=== PATIENT | female | born 1980 | race Caucasian/White ===

== ENCOUNTER 2016-12-01 15:37 | Emergency (ER) | payer MEDICAID, MEDICARE ==
[~2016-12-01] VITALS: Ht 152.4 cm; Wt 49.9 kg
[2016-12-01 15:49] VITALS: BP 97/67
[2016-12-01] MEDS ORDERED: SODIUM CHLORIDE 0.9% 1,000 ML IV ONE (16:15)
[2016-12-01 16:36] LABS: Basophils # (auto) 0 uL; Basophils % (auto) 0.5 % (0.0-2.0); CONDITION Y; Eosinophils # (auto) 0.2 uL; Hematocrit 41.3 % (36.0-46.0); Lymphocytes # (auto) 2.9 uL; Lymphocytes % (auto) 34.8 % (10.0-50.0); Mean Corpuscular Hemoglobin 30.1 pg (28.0-32.0); Mean Corpuscular Volume 88.6 fL (80.0-100.0); Mean Platelet Volume 7.9 fL (7.4-10.4); Monocytes # (auto) 0.7 uL; Monocytes % (auto) 8.3 % (0.0-12.0); Neutrophils # (auto) 4.5 uL; Neutrophils % (auto) 54.4 % (37.0-80.0); Platelet Count (auto) 284 10^3/uL (140-450); Red Cell Distribution Width 13.8 % (11.6-16.0); White Blood Cell 8.3 10^3/uL (4.4-10.8)
[2016-12-01 18:38] LABS: Albumin 4.5 g/dL (3.4-5.0); Calcium 9.2 mg/dL (8.5-10.1)
[2016-12-01 19:04] LABS: BUN/Creatinine Ratio 13.5; Total Protein 7.5 g/dL (6.4-8.2)
== END 2016-12-01 19:05 | disposition home or self-care (01) ==
LOC: EDBD 15:37 → ER 15:39
DX: R41.82 Altered mental status, unspecified (principal); F32.9 Major depressive disorder, single episode, unspecified; F41.9 Anxiety disorder, unspecified; F17.210 Nicotine dependence, cigarettes, uncomplicated; Z88.8 Allergy status to other drugs, medicaments and biological substances
CPT/HCPCS: 36415; 80053; 80320; 82140; 82962; 84702; 85025; 93005

== ENCOUNTER 2017-02-15 11:09 | Emergency (ER) | payer MEDICARE, MEDICAID ==
[~2017-02-15] VITALS: Ht 152.4 cm; Wt 49.0 kg
[2017-02-15 19:20] VITALS: BP 110/71
[2017-02-15] MEDS ORDERED: cefTRIAXone SOD 1,000 MG VL ONE (20:29)
[2017-02-15] MEDS ORDERED: FLUCONAZOLE 100 MG TAB PO ONE (20:30)
[2017-02-15] MEDS ORDERED: LIDOCAINE 1% HCL (LOCAL ANESTH.) INJ 20ML MDV ONE (20:30)
[2017-02-15] MEDS ORDERED: cefTRIAXone W LIDOCAINE 500 MG IM IM ONE (20:30)
== END 2017-02-15 21:05 | disposition home or self-care (01) ==
LOC: ER 11:09
DX: N76.0 Acute vaginitis (principal); N72 Inflammatory disease of cervix uteri; L40.9 Psoriasis, unspecified; R56.9 Unspecified convulsions; L98.499 Non-pressure chronic ulcer of skin of other sites with unspecified severity; F17.210 Nicotine dependence, cigarettes, uncomplicated; Z88.8 Allergy status to other drugs, medicaments and biological substances; Z11.3 Encounter for screening for infections with a predominantly sexual mode of transmission; Z76.0 Encounter for issue of repeat prescription
CPT/HCPCS: 87070; 87205; 87491; 87591; 96372; 99284; J0696; J2001

== ENCOUNTER 2018-05-03 21:46 | Emergency (ER) | payer OTHER, MEDICAID ==
[~2018-05-03] VITALS: Ht 167.6 cm; Wt 68.0 kg
[2018-05-03 21:53] VITALS: BP 134/87
== END 2018-05-04 01:25 | disposition home or self-care (01) ==
LOC: ER 21:46
DX: Z76.0 Encounter for issue of repeat prescription (principal); R51 Headache

== ENCOUNTER 2018-10-11 10:55 | Emergency (ER) | payer OTHER, MEDICAID ==
[~2018-10-11] VITALS: Ht 167.6 cm; Wt 65.8 kg
[2018-10-11 11:28] VITALS: BP 124/86
== END 2018-10-11 12:04 | disposition home or self-care (01) ==
LOC: ER 11:03
DX: G43.909 Migraine, unspecified, not intractable, without status migrainosus (principal); Z88.6 Allergy status to analgesic agent; Z88.8 Allergy status to other drugs, medicaments and biological substances; Z76.0 Encounter for issue of repeat prescription

== ENCOUNTER 2018-10-15 10:48 | Emergency (ER) | payer OTHER, MEDICAID ==
[~2018-10-15] VITALS: Ht 167.6 cm; Wt 65.8 kg
[2018-10-15 10:52] VITALS: BP 106/77
== END 2018-10-15 11:57 | disposition left against medical advice (07) ==
LOC: ER 10:53
DX: Z76.0 Encounter for issue of repeat prescription (principal); Z53.21 Procedure and treatment not carried out due to patient leaving prior to being seen by health care provider

== ENCOUNTER 2020-07-09 17:46 | Emergency (ER) | payer OTHER, MEDICAID ==
[~2020-07-09] VITALS: Ht 167.6 cm; Wt 68.5 kg
[2020-07-09 21:05] VITALS: BP 147/90
== END 2020-07-09 21:22 | disposition home or self-care (01) ==
LOC: ER 17:46
DX: S02.609D Fracture of mandible, unspecified, subsequent encounter for fracture with routine healing (principal); Z76.0 Encounter for issue of repeat prescription; Z88.6 Allergy status to analgesic agent; X58.XXXD Exposure to other specified factors, subsequent encounter

== ENCOUNTER 2023-09-10 19:05 | Emergency (ER) | payer MEDICAID, MEDICARE, OTHER ==
[~2023-09-10] VITALS: Ht 167.6 cm; Wt 59.5 kg
[2023-09-10] MEDS ORDERED: HYDR-4798 PO (20:25)
[2023-09-10 20:44] VITALS: BP 146/87; PULSE 89; RESP 16; TEMP 98.4; O2SAT 99
== END 2023-09-10 20:49 | disposition home or self-care (01) ==
LOC: ER 19:05
DX: N64.4 Mastodynia (principal); Z76.0 Encounter for issue of repeat prescription; Z88.6 Allergy status to analgesic agent